=== PATIENT | female | born 1960 | race Caucasian/White ===

== ENCOUNTER 2022-06-10 10:16 | Day surgery (SDC) | payer MEDICARE, BC ==
[~2022-06-10 10:16] MED LIST: Lactated Ringers 1,000 ML IV SCH; Lidocaine 1% 0 ML ONE; Lidocaine 1%/Sod Bicarbonate in NS 8.4% 1 ML Syringe IDERM PRN; Propofol 200 MG/20 ML SDV ONE; Sodium Chloride 0.9% 10 ML Syringe FLUSH PRN; Sodium Chloride 0.9% 10 ML Syringe FLUSH SCH
[2022-06-10] MEDS ORDERED: Propofol 200 MG/20 ML SDV ONE (11:30)
[2022-06-10] MEDS ORDERED: Lidocaine 1% 4 ML ONE (11:30)
[2022-06-10] MEDS ORDERED: Midazolam 1 MG/ML 2 ML SDV ONE (11:31)
[2022-06-10] MEDS ORDERED: fentaNYL 100 MCG/2 ML SDV ONE (11:31)
[2022-06-10] MEDS ORDERED: Ondansetron 4 MG/2 ML SDV ONE (12:18)
[2022-06-10 13:33] VITALS: BP 133/77; PULSE 68
== END 2022-06-10 13:20 | disposition home or self-care (01) ==
LOC: JD.SDS 10:16
PROVIDERS: ATTEND Surgery
DX: Z12.11 Encounter for screening for malignant neoplasm of colon (principal); K57.30 Diverticulosis of large intestine without perforation or abscess without bleeding; K44.9 Diaphragmatic hernia without obstruction or gangrene; R13.10 Dysphagia, unspecified; K21.9 Gastro-esophageal reflux disease without esophagitis; F41.9 Anxiety disorder, unspecified; F32.A Depression, unspecified; I11.0 Hypertensive heart disease with heart failure; I50.9 Heart failure, unspecified; G62.9 Polyneuropathy, unspecified; E78.00 Pure hypercholesterolemia, unspecified; I25.10 Atherosclerotic heart disease of native coronary artery without angina pectoris; J45.909 Unspecified asthma, uncomplicated; E03.9 Hypothyroidism, unspecified; E66.9 Obesity, unspecified; E55.9 Vitamin D deficiency, unspecified; Z68.30 Body mass index [BMI] 30.0-30.9, adult; Z98.890 Other specified postprocedural states; Z95.0 Presence of cardiac pacemaker; Z88.0 Allergy status to penicillin; Z79.899 Other long term (current) drug therapy; Z79.890 Hormone replacement therapy; Z87.891 Personal history of nicotine dependence
CPT/HCPCS: 43239; G0121; J2250; J2405; J2704; J3010; J7120; 00813

== ENCOUNTER 2023-02-24 08:45 | Day surgery (SDC) | payer MEDICARE, BC ==
[~2023-02-24 08:45] MED LIST changes: -Lidocaine 1% 0 ML ONE; -Propofol 200 MG/20 ML SDV ONE
[2023-02-24] MEDS ORDERED: fentaNYL 100 MCG/2 ML SDV ONE (10:52)
[2023-02-24] MEDS ORDERED: Midazolam 1 MG/ML 2 ML SDV ONE (10:53)
[2023-02-24] MEDS ORDERED: Lidocaine 1% 5 ML VIAL ONE (10:53)
[2023-02-24] MEDS ORDERED: Propofol 200 MG/20 ML SDV ONE (10:53)
[2023-02-24 12:35] VITALS: BP 122/74; PULSE 68
== END 2023-02-24 12:40 | disposition home or self-care (01) ==
LOC: JD.SDS 08:45
PROVIDERS: ATTEND Surgery
DX: K29.50 Unspecified chronic gastritis without bleeding (principal); K44.9 Diaphragmatic hernia without obstruction or gangrene; F41.9 Anxiety disorder, unspecified; M19.90 Unspecified osteoarthritis, unspecified site; J45.909 Unspecified asthma, uncomplicated; I25.10 Atherosclerotic heart disease of native coronary artery without angina pectoris; I11.0 Hypertensive heart disease with heart failure; I50.9 Heart failure, unspecified; F32.A Depression, unspecified; K21.9 Gastro-esophageal reflux disease without esophagitis; E78.5 Hyperlipidemia, unspecified; E03.9 Hypothyroidism, unspecified; G47.00 Insomnia, unspecified; G62.9 Polyneuropathy, unspecified; Z87.891 Personal history of nicotine dependence; Z88.0 Allergy status to penicillin; Z79.890 Hormone replacement therapy; Z79.899 Other long term (current) drug therapy
CPT/HCPCS: 43239; J2250; J2704; J3010; J7120; J3490

== ENCOUNTER 2024-09-03 22:42 | Emergency (ER) | payer MEDICARE, OTHER ==
[2024-09-03 23:12] VITALS: PULSE 103
[2024-09-03 23:25] LABS: BASOPHILS ABSOLUTE AUTO 0.1 K/mm3 (0.0-0.2); BASOPHILS PERCENT AUTO 0.7 % (0.0-1.0); EOSINOPHILS ABSOLUTE AUTO 0.1 K/mm3 (0.0-0.4); EOSINOPHILS PERCENT AUTO 0.7 % (0.0-6.0); HEMOGLOBIN 15.9 gm/dl (12.0-16.0); IMMATURE GRAN ABSOLUTE AUTO 0.02 K/mm3 (0.00-0.05); IMMATURE GRAN PERCENT AUTO 0.2 % (0.0-0.4); LYMPHOCYTES ABSOLUTE AUTO 2.9 K/mm3 (1.0-4.8); LYMPHOCYTES PERCENT AUTO 29.8 % (24.0-44.0); MEAN CORPUSCULAR HEMOGLOBIN 32.4 pg (28.0-32.0); MEAN CORPUSCULAR HGB CONC 33.8 g/dl (32.0-36.0); MEAN CORPUSCULAR VOLUME 95.9 fl (83.0-99.0); MEAN PLATELET VOLUME 9.4 fl (9.4-12.3); MONOCYTES ABSOLUTE AUTO 0.9 K/mm3 (0.0-0.8); MONOCYTES PERCENT AUTO 9.3 % (0.0-8.0); NEUTROPHILS ABSOLUTE AUTO 5.8 K/mm3 (1.8-7.7); NEUTROPHILS PERCENT AUTO 59.3 % (41.0-71.0); PLATELET COUNT,PLT 308 K/mm3 (150-400); WHITE BLOOD CELL COUNT,WBC 9.81 K/mm3 (3.9-11.3)
[2024-09-03] MEDS: Sodium Chloride 0.9% 1,000 ML IV SCH (23:27)
[2024-09-03] MEDS: HYDROmorphone 0.5 MG/0.5 ML Syringe IVPUSH ONE (23:27)
[2024-09-03] MEDS: Ondansetron 4 MG/2 ML SDV IVPUSH ONE (23:27)
[2024-09-03] MEDS: Sodium Chloride 0.9% 10 ML Syringe FLUSH PRN (23:27)
[2024-09-03 23:53] LABS: A/G RATIO 1.2 (1-2); ALBUMIN 4.1 g/dl (3.4-5.0); ANION GAP 12.6 (5-15); BILIRUBIN TOTAL 0.7 mg/dL (0.2-1.0); C-REACTIVE PROTEIN 0.17 mg/dL (<0.30); CALCIUM 9.8 mg/dL (8.5-10.1); EST CRCL DRUG DOSING (CG) 47.63 mL/min; MAGNESIUM 2.3 mg/dL (1.8-2.4); POTASSIUM,K 3.6 mEq/L (3.5-5.1); PROTEIN TOTAL,TP 7.4 g/dl (6.4-8.2); TSH 3.748 uIU/mL (0.358-3.74)
[2024-09-04 00:10] LABS: T4 FREE 1.13 ng/dL (0.76-1.46)
[2024-09-04] MEDS: Aspirin 81 MG Tab.Chew PO ONE (00:21)
[2024-09-04] MEDS: Heparin Sodium/D5W 25,000 UNITS/500 ML BAG IV SCH (00:30)
[2024-09-04] MEDS: Heparin Sodium 5,000 Units/ML Vial IVPUSH ONE (00:32)
[2024-09-04] MEDS: Nitroglycerin 0.4 MG Tab.SL SL ONE (03:06)
[2024-09-04 03:07] VITALS: BP 148/83
[2024-09-04] MEDS: Metoclopramide 10 MG/2 ML SDV IVPUSH ONE (04:14)
== END 2024-09-04 04:45 ==
LOC: JD.ED 22:42
DX: I21.4 Non-ST elevation (NSTEMI) myocardial infarction (principal); J45.909 Unspecified asthma, uncomplicated; E11.9 Type 2 diabetes mellitus without complications; Z88.0 Allergy status to penicillin; Z79.890 Hormone replacement therapy; Z79.899 Other long term (current) drug therapy
CPT/HCPCS: 36415; 71045; 80053; 83690; 83735; 83880; 84439; 84443; 84484; 85025; 85379; 86140; 93005; 96361; 96365; 96366; 96375; 99285; A9270; J1644; J2405; J3490; J7030; J1171